=== PATIENT | female | born 1975 | race Caucasian/White ===

== ENCOUNTER 2018-05-10 17:27 | Emergency (ER) | payer MEDICAID ==
[~2018-05-10] VITALS: Ht 154.9 cm; Wt 86.0 kg
[2018-05-10] MEDS ORDERED: KETOROLAC 60MG/2ML VIAL IM ONE (21:45)
[2018-05-10] MEDS ORDERED: TRAMADOL 50MG TABLET PO ONE (21:45)
[2018-05-10 23:46] VITALS: BP 124/75
== END 2018-05-10 23:46 | disposition home or self-care (01) ==
LOC: ER 17:27
DX: S09.8XXA Other specified injuries of head, initial encounter (principal); V49.49XA Driver injured in collision with other motor vehicles in traffic accident, initial encounter; Y93.89 Activity, other specified; Y92.89 Other specified places as the place of occurrence of the external cause; Y99.8 Other external cause status; Z87.440 Personal history of urinary (tract) infections; Z98.890 Other specified postprocedural states
CPT/HCPCS: 70450; 71045; 72070; 72100; 96372; 99284; J1885

== ENCOUNTER 2021-08-22 15:10 | Emergency (ER) | payer MEDICAID ==
[~2021-08-22] VITALS: Ht 154.9 cm; Wt 98.0 kg
[2021-08-22 22:09] LABS: BASOPHILS % 0.6 % (0.0-2.0); EOSINOPHILS % 1.6 % (0.0-5.0); HEMATOCRIT. 29.9 % (36.0-48.0); HEMOGLOBIN. 8.9 g/dL (12.0-16.0); LYMPHOCYTES % 25.8 % (20.0-50.0); MEAN CORPUSCULAR HEMOGLOBIN 19.9 pg (28.0-32.0); MEAN CORPUSCULAR VOLUME 66.6 fL (81.0-99.0); MEAN PLATELET VOLUME 7.9 fl (7.4-10.4); PLATELET 295 x1000/uL (130-400); RED BLOOD CELL COUNT 4.49 mill/uL (4.2-5.4); RED CELL DISTRIBUTION WIDTH 25.1 % (11.6-14.6)
[2021-08-22 22:10] LABS: CHLORIDE 107 mEq/L (98-107)
[2021-08-22 22:11] LABS: PROTHROMBIN TIME 10.7 sec (9.6-11.0)
[2021-08-22 22:36] LABS: PLATELET ESTIMATE NORMAL
[2021-08-22 23:08] VITALS: BP 147/78
== END 2021-08-22 23:10 ==
LOC: ER 15:10
DX: N92.0 Excessive and frequent menstruation with regular cycle (principal); I10 Essential (primary) hypertension; Z98.890 Other specified postprocedural states
CPT/HCPCS: 36415; 80053; 81025; 85025; 86850; 86900; 93005; 99284